=== PATIENT | male | born 1980 | race Caucasian/White ===

== ENCOUNTER 2021-04-11 13:30 | Emergency (ER) | payer OTHER, SELFPAY ==
[2021-04-11 13:45] VITALS: BP 115/74; PULSE 70; RESP 14; TEMP 36.7; O2SAT 98; BMI 25.0
--- NOTE | 2021-04-11 15:29 | ED_ITS ---
HPI - Head Injury <Desmond Pickett PA-C - Last Filed: 04/11/21 18:36> General Chief complaint: Head Injury Stated complaint: Hit Head Time Seen by Provider: 04/11/21 14:34 Source: patient Mode of arrival: Ambulatory History of Present Illness HPI Narrative: Patient is a 41-year-old male presenting to the emergency department today for an evaluation a closed head injury. Patient states that approximately 1100 this morning a 25 lb shelf fell approximately 5 ft and hit the crown of his head. He denies losing consciousness as a result of the injury. He explains that since the injury he has felt intermittent episodes of nausea and explains that his ?head feels foggy?. He notes a history of concussion and states that his symptoms do not appear similar to the last time he experienced a concussion. No fever, chills, chest pain, cough, shortness of breath, vomiting, diarrhea, abdominal pain, dysuria, hematuria, syncope, confusion, behavior abnormalities, changes in vision or hearing, or any other concerning symptoms reported. No further concerns were voiced at this time. Related Data Allergies Allergy/AdvReac Type Severity Reaction Status Date / Time No Known Drug Allergies Allergy Verified 04/11/21 13:45 Review of Systems <Desmond Pickett PA-C - Last Filed: 04/11/21 18:36> Constitutional Constitutional: Denies chills, Denies fatigue, Denies fever(s), Denies frequent falls, Denies lethargy and Denies weakness Eyes Eyes: Denies loss of vision ENT Ears, Nose, Mouth, and Throat: Denies dizziness and Denies neck pain Cardiovascular Cardiovascular: Denies chest pain, Denies irregular heart rhythm, Denies lightheadedness, Denies palpitations, Denies dyspnea, Denies dyspnea on exertion and Denies orthopnea Respiratory Respiratory: Denies cough, Denies dyspnea, Denies dyspnea on exertion and Denies wheezing Gastrointestinal Gastrointestinal: Denies abdominal pain, Denies change in bowel habits, Denies diarrhea, Reports nausea and Denies vomiting Genitourinary Genitourinary: Denies hematuria, Denies flank pain, Denies urinary incontinence and Denies urinary urgency Musculoskeletal Musculoskeletal: Denies back pain, Denies muscle weakness, Denies neck pain, Denies numbness and Denies tingling Integumentary/Breasts Skin/Breast: Denies pruritus, Denies erythema, Denies rash and Denies wounds Neurologic Neurologic: Denies behavioral changes, Denies confusion, Denies dizziness, Denies frequent falls, Denies loss of vision, Denies numbness, Denies tingling, Denies weakness and Reports other (Head injury) Psychiatric Psychiatric: Denies behavioral changes and Denies confusion Endocrine Endocrine: Denies fatigue and Denies palpitations Allergic/Immunologic Allergic/Immunologic: Denies wheezing Patient History <Desmond Pickett PA-C - Last Filed: 04/11/21 18:36> Social History Smoking Status: Unknown if ever smoked Smoking Status: Unknown if ever smoked alcohol intake frequency: holidays/special occasions only Substance Use Type: does not use Exam <Desmond Pickett PA-C - Last Filed: 04/11/21 18:36> Narrative Exam Narrative: GENERAL: 41 year old patient appears stated age. Well-developed patient, in no acute distress. HEAD: Atraumatic. Normocephalic. EYES: Pupils equal round and reactive. Extraocular motions intact. No scleral icterus. No injection or drainage. HEAD/ENT: Nose without bleeding, purulent drainage. Throat without erythema, tonsillar hypertrophy or exudate. Airway patent. Approximately 1 cm area in diameter area of swelling and tenderness to the crown of the head. No crepitance or significant deformity appreciated. Negative quijano signs, no ecchymosis below the eyes or behind the ears. Negative hemotympanum. NECK: Trachea midline. Non tender CARDIOVASCULAR: Regular rate and rhythm without murmurs, gallops, or rubs. RESPIRATORY: Clear to auscultation. Breath sounds equal bilaterally. No wheezes, rales, or rhonchi. GASTROINTESTINAL: Abdomen soft, non-tender, nondistended. EXTREMITIES: No edema or joint tenderness. BACK: Nontender without deformity or crepitance. No flank tenderness. NEURO: AOx3. SKIN: No rash or erythema of visible areas Initial Vital Signs Initial Vital Signs: Vital Signs Temperature 98.0 F 04/11/21 13:45 Pulse Rate 70 04/11/21 13:45 Respiratory Rate 14 04/11/21 13:45 Blood Pressure 115/74 04/11/21 13:45 Pulse Oximetry 98 04/11/21 13:45 <Natty James DO - Last Filed: 04/12/21 20:03> Initial Vital Signs Initial Vital Signs: Vital Signs Temperature 98.0 F 04/11/21 13:45 Pulse Rate 70 04/11/21 13:45 Respiratory Rate 14 04/11/21 13:45 Blood Pressure 115/74 04/11/21 13:45 Pulse Oximetry 98 04/11/21 13:45 Course <Desmond Pickett PA-C - Last Filed: 04/11/21 18:36> Course Course Narrative: Physical examination performed emergency department. Patient states that his nausea has since subsided. Vital Signs Vital signs: Vital Signs - 8 hr 04/11/21 13:45 04/11/21 16:12 Temperature 98.0 F Pulse Rate 70 66 Respiratory Rate 14 18 Blood Pressure 115/74 114/74 Pulse Oximetry 98 96 <Natty James DO - Last Filed: 04/12/21 20:03> Vital Signs Vital signs: Vital Signs - 8 hr 04/11/21 13:45 04/11/21 16:12 Temperature 98.0 F Pulse Rate 70 66 Respiratory Rate 14 18 Blood Pressure 115/74 114/74 Pulse Oximetry 98 96 MDM - Head Injury <Desmond Pickett PA-C - Last Filed: 04/11/21 18:36> MDM Narrative Medical decision making narrative: Differential diagnosis to consider but not limited to closed head injury versus concussion versus epidural hematoma versus subdural hematoma versus skull fracture. Overall, physical examination is very reassuring. Patient does not appear to be experiencing any neuro deficits and he is alert and oriented x3. I discussed possibly obtaining imaging at this time and discussed the pros and cons, patient states that this time he is comfortable foregoing imaging. He explains that he will be staying with his mother in [facility] and will return to the emergency department if he feels his symptoms are worsening. He explains that he is comfortable being discharged home and is stable for discharge at this time. Strict return precautions were discussed with the patient prior to discharge. Discharge Plan Departure Patient Disposition: Home Clinical Impression: Closed head injury Instructions: DI for Closed Head Injury Activity Restrictions/Additional Instructions: *You have been diagnosed with closed head injury *What to do: *Please continue to take your regular medications as directed. [ ] New medication prescriptions sent to your pharmacy: [ ] [ ] New medication written as a paper prescription [X] No new medications given You were evaluated in the emergency department today for a post head injury. Physical examination was very reassuring as no acute abnormality was identified that would require imaging at this time. You can continue taking Tylenol and ibuprofen as needed for pain management. Please follow-up with the primary care provider within the next 2-3 days for further evaluation. Do not hesitate to return to the emergency department if you experience loss of consciousness, changes in vision or hearing, persistent vomiting, confusion, behavior abnormalities, or any other concerning symptoms. *Please follow up with your primary care provider in 2-3 days, call for an appointment. Let them know you were seen in the Emergency Department and that we ask that you be seen in follow up. We will electronically transmit a record of today's note if your PCP is in our system *If you do not have a primary care provider please contact the [facility] line at [phone]. They will ask some questions about your medical history and help get you set up with a doctor in the community. *Return to Emergency Department if you should have any new, worsening or concerning symptoms, such as fever greater than 101 F, shaking chills, worsening pain, persistent vomiting or other bothersome symptoms Stand Alone Forms: Against Medical Advice <Natty James DO - Last Filed: 04/12/21 20:03> [facility] Geeth[facility] Attestation: I was immediately available in the department for consultation. Documentation has been reviewed. Patient has against medical advice form but does not appear to have left against medical advice.
[2021-04-11 16:12] VITALS: BP 114/74; PULSE 66; RESP 18; O2SAT 96
== END 2021-04-11 16:17 | disposition home or self-care (01) ==
PROVIDERS: Emergency Provider Physician Assistant
DX: S09.8XXA Other specified injuries of head, initial encounter (principal); W20.8XXA Other cause of strike by thrown, projected or falling object, initial encounter
CPT/HCPCS: 99281